=== PATIENT | male | born 2000 | race Two or more races ===

== ENCOUNTER 2022-01-08 16:00 | Emergency (ER) | payer OTHER ==
[~2022-01-08] VITALS: Ht 180.3 cm; Wt 69.4 kg
[2022-01-08] MEDS ORDERED: NABUMETONE750 MG PO (17:54)
== END 2022-01-08 17:57 | disposition home or self-care (01) ==
LOC: ER 16:00
DX: S59.902A Unspecified injury of left elbow, initial encounter (principal); W10.9XXA Fall (on) (from) unspecified stairs and steps, initial encounter; Y93.9 Activity, unspecified; Y92.59 Other trade areas as the place of occurrence of the external cause; S39.92XA Unspecified injury of lower back, initial encounter